=== PATIENT | female | born 1995 | race African-American/Black ===

== ENCOUNTER 2019-06-14 15:34 | Inpatient (IN) ==
[2019-06-14 16:10] LABS: Apearance,Urine CLEAR (Clear); Bacteria,Urine Occasional /HPF (Few); Bilirubin,Urine Negative (Negative); Blood, Urine Negative (Negative); Glucose,Urine (UA) Negative (Negative); Ketones,Urine Negative (Negative); Mucus,Urine Occasional /LPF (Occasional); Nitrite,Urine Negative (Negative); Protein,Urine Negative; Squamous Epithelial Cell,Urine Occasional /HPF (0-10); Urine Color Straw (Yellow); Urine Specific Gravity 1.006 (1.001-1.035); Urine Urobilinogen < 2.0 EU/DL (0.2-1.0)
[2019-06-14] MEDS ORDERED: diphenhydrAMINE 50 MG/1 ML VIAL IM ONE (16:14)
[2019-06-14 16:18] LABS: Basophils % 0.3 % (0.0-0.8); Eosinophils # 0.2 10*3/uL (0.0-0.87); Hemoglobin 8.9 GM/DL (12.0-16.0); Immature Granulocytes % 1.1 %; Immature Granulocytes Absolute 0.08 #; Lymphocytes % 27.2 % (21.3-54.2); Mean Corpuscular HGB Conc 30.7 GM/DL (32-36); Mean Corpuscular Volume 82.2 FL (87-102); Monocytes % 10.8 % (1.7-12.7); Neutrophils % 58.6 % (38.7-73.9); Platelet Count 131 T/CUMM (130-400); Red Blood Count 3.53 MC/CUMM (3.8-5.5); Red Cell Distribution Width 15.4 % (9.3-17.3); White Blood Count 7.5 T/CUMM (4-12)
[2019-06-14 16:26] LABS: Alanine Aminotransferase 17 U/L (13-56); Albumin 2.7 G/DL (3.4-5.0); Alkaline Phosphatase 153 U/L (45-117); Aspartate Amino Transferase 17 U/L (0-37); Bilirubin,Direct < 0.100 MG/DL (0.0-0.20); Bilirubin,Total < 0.39 MG/DL (0.2-1.0); Blood Urea Nitrogen 4 MG/DL (7-18); Calcium 8.1 MG/DL (8.5-10.1); Estimated Glom Filtration Rate 158 ML/MIN; Glucose 92 MG/DL (74-106); Osmolality,Calculated 273.5 MOS/KG (273-304); Total Protein 6.7 G/DL (6.4-8.3); Uric Acid 3.9 MG/DL (2.6-6.0)
[2019-06-14 16:48] LABS: INR 0.9; PT Patient Result 9.9 SECS (9.8-11.9); Partial Thromboplastin Time 28.5 SECS (23.9-33.8)
[2019-06-14] MEDS ORDERED: BUTORPHANOL 2 MG/ML VIAL IV PRN (17:55)
[2019-06-14] MEDS ORDERED: LACTATED RINGERS 1,000 ML IV PRN (17:55)
[2019-06-14] MEDS ORDERED: MEPERIDINE 25 MG/1 ML VIAL IV PRN (17:55)
[2019-06-14] MEDS ORDERED: ACETAMINOPHEN 500 MG TABLET PO PRN (19:52)
[2019-06-15] MEDS ORDERED: AMPICILLIN INJ 2,000 MG in SODIUM CHLORIDE 0.9% 100 ML IV ONE (06:00)
[2019-06-15] MEDS ORDERED: ePHEDrine 50 MG/ML AMP IV PRN (09:40)
[2019-06-15] MEDS ORDERED: CITRIC ACID/SODIUM CITRATE 30 ML UDCUP PO ONE (09:40)
[2019-06-15] MEDS ORDERED: LACTATED RINGERS 1,000 ML IV ONE (09:40)
[2019-06-15] MEDS ORDERED: FAMOTIDINE 20 MG/2 ML VIAL IV ONE (09:40)
[2019-06-15] MEDS: fentaNYL 2 MCG/ROPIV 0.2% EPID 100 ML EPIDURAL SCH ×2 (10:30→17:47)
[2019-06-15] MEDS: ONDANSETRON 4 MG/2 ML VIAL IV PRN ×2 (10:38→19:52)
[2019-06-15] MEDS: AMPICILLIN INJ 1,000 MG in SODIUM CHLORIDE 0.9% 100 ML IV SCH ×2 (10:51→17:00)
[2019-06-15] MEDS: OXYTOCIN/LR 20 UNIT/1,000 ML BAG IV SCH ×2 (10:52→23:33)
[2019-06-15 13:10] LABS: Apearance,Urine CLEAR (Clear); Bilirubin,Urine Negative (Negative); Blood, Urine Negative (Negative); Glucose,Urine (UA) Negative (Negative); Ketones,Urine 5 mg/dL (Negative); Mucus,Urine Occasional /LPF (Occasional); Nitrite,Urine Negative (Negative); Protein,Urine Negative; RBC,Urine 1 /HPF (0-4); Squamous Epithelial Cell,Urine Occasional /HPF (0-10); Urine Color Yellow (Yellow); Urine Specific Gravity 1.009 (1.001-1.035); Urine Urobilinogen < 2.0 EU/DL (0.2-1.0); WBC,Urine 1 /HPF (0-6)
[2019-06-15] MEDS ORDERED: MAGNESIUM HYDROXIDE SUSP 30 ML UDCUP PO PRN (21:23)
[2019-06-15] MEDS ORDERED: BISACODYL 10 MG SUPP RECTAL PRN (21:23)
[2019-06-15] MEDS ORDERED: ONDANSETRON 4 MG/2 ML VIAL IV PRN (21:23)
[2019-06-15] MEDS ORDERED: LACTATED RINGERS 1,000 ML IV SCH (21:30)
[2019-06-15] MEDS ORDERED: KETOROLAC 15 MG/1 ML VIAL IV SCH (23:00)
[2019-06-16] MEDS: IBUPROFEN 800 MG TABLET PO PRN ×2 (01:08→20:30)
[2019-06-16 04:32] LABS: Basophils % 0.2 % (0.0-0.8); Eosinophils % 0.2 % (0.00-10.9); Hematocrit 27.1 VOL% (35.7-47.0); Hemoglobin 8.5 GM/DL (12.0-16.0); Immature Granulocytes % 0.5 %; Immature Granulocytes Absolute 0.09 #; Lymphocytes # 1.8 10*3/uL (1.4-4.0); Lymphocytes % 11.2 % (21.3-54.2); Mean Corpuscular HGB Conc 31.4 GM/DL (32-36); Mean Corpuscular Volume 80.4 FL (87-102); Mean Platelet Volume 13.3 FL (9.6-12.0); Monocytes % 11.2 % (1.7-12.7); Neutrophils % 76.7 % (38.7-73.9); Platelet Count 134 T/CUMM (130-400); Red Blood Count 3.37 MC/CUMM (3.8-5.5); Red Cell Distribution Width 15.6 % (9.3-17.3); White Blood Count 16.4 T/CUMM (4-12)
[2019-06-16] MEDS: DOCUSATE SODIUM 100 MG CAPSULE PO SCH ×2 (08:46→20:30)
[2019-06-16] MEDS: IRON (CARBONYL)/VIT C/B12/FA TABLET PO SCH (11:00)
[2019-06-17 07:21] VITALS: BP 127/74
[2019-06-17] MEDS: IRON (CARBONYL)/VIT C/B12/FA TABLET PO SCH (09:45)
[2019-06-17] MEDS: DOCUSATE SODIUM 100 MG CAPSULE PO SCH (09:45)
== END 2019-06-17 12:30 | disposition home or self-care (01) | DRG 560 ==
LOC: N.LDOUT 15:34 → N.LD 15:37 → N.OB 06-16 00:52
PROVIDERS: ADMIT Obstetrics & Gynecology; ATTEND Obstetrics & Gynecology